=== PATIENT | female | born 1970 | race Caucasian/White ===

== ENCOUNTER 2019-12-30 14:02 | Emergency (ER) | payer OTHER, SELFPAY ==
[2019-12-30 14:03] VITALS: BP 136/89; PULSE 118; RESP 16; TEMP 36.6; O2SAT 97; BMI 23.4
--- NOTE | 2019-12-30 14:21 | CT_ITS ---
STUDY: CT PELVIS WITH CONTRAST REASON FOR EXAM: Female, 49 years old. RT GROIN/PELVIC ABSCESS, ON ANTIBIOTICS X 2 WKS W/O IMPROVEMENT RADIATION DOSAGE (If Supplied By Facility): CTDIvol = ( 23.68 ) mGy, DLP = ( 964.25 ) mGycm TECHNIQUE: Transaxial imaging of the pelvis was performed without oral contrast. IV 100mL Isovue-300 was administered intravenously. Individualized dose optimization techniques were used for this CT. COMPARISON: None. FINDINGS: Normal urinary bladder. Heterogeneous masses are seen in the uterus the largest measures 7.8 cm are consistent with fibroids. Normal visualized small intestine. Normal visualized colon. There is no pelvic fluid. There is no pelvic lymphadenopathy or mass lesion. Normal visualized pelvic arteries. Subcutaneous fat stranding at the inner aspect of the right thigh and in the labia major consistent with cellulitis. There is abnormal fluid collection to suggest an abscess. Normal osseous structures. CT/Pelvis WITH IV Contrast IMPRESSION: Subcutaneous fat stranding at the inner aspect of the right thigh and in the labia major consistent with cellulitis. There is abnormal fluid collection to suggest an abscess. Heterogeneous masses are seen in the uterus the largest measures 7.8 cm are consistent with fibroids. Electronically Signed: Galilea Meng, at 15:51 EDT Tel , Service support ,
[2019-12-30 14:52] VITALS: BP 136/89; PULSE 118; RESP 16; TEMP 36.6; O2SAT 97
[2019-12-30 14:59] LABS: Absolute Lymphocyte Count 1.37 X10^3/uL (0.83-4.51); Absolute Neutrophil Count 10.6 X10^3/uL (2.0-7.7); Basophil# 0.04 X10^3/uL; Basophil% 0.3 % (0-1); Eosinophil# 0.02 X10^3/uL; Eosinophils% 0.2 % (0-5); Hematocrit 41.5 % (37-47); Hemoglobin 13.9 g/dL (12.0-15.0); Lymphocyte # 1.37 X10^3/ul (4.0); Lymphocyte % 10.4 % (19-41); Mean Corp Hgb Conc 33.5 g/dL (32-36); Mean Corpuscular Hgb 31.7 pg (27.0-32.0); Mean Corpuscular Volume 94.7 fL (81-99); Mean Platelet Vol. 9.1 fl (6.2-12.0); Monocyte# 1.04 X10^3/uL; Monocyte% 7.9 % (0-10); NRBC Flagged by Analyzer 0 % (0-5); Neutrophil # 10.62 X10^3/uL (2.7-7.7); Neutrophil % 80.9 % (47-70); Platelet Count 375 K/mm3 (150-450); RBC Distribution Width CV 12.7 % (11.6-14.6); RBC Distribution Width SD 44.3 fl (35.1-43.9); Red Blood Count 4.38 M/mm3 (4.2-5.4); White Blood Count 13.1 K/mm3 (4.4-11.0)
[2019-12-30 15:14] LABS: Anion Gap 6 (5-15); BUN 12 mg/dL (7-18); BUN/Creat Ratio 17.2 RATIO (10-20); Calcium,Total 9.1 mg/dL (8.5-10.1); Chloride 105 mmol/L (98-107); EST Glomerular Filtration Rate 96 mL/min (>60); Est Glom Filt Rate - Afr Amer 116 mL/min (>60); Estimated Creatinine Clearance 85.79 ml/min; Glucose 96 mg/dL (74-106); Potassium 3.4 mmol/L (3.5-5.1); Sodium Level 137 mmol/L (136-145)
--- NOTE | 2019-12-30 15:28 | ED.DCSUM_ITS ---
- ER Visit Summary Date of Service: 12/30/19 Chief Complaint: [Redness and swelling to right groin] History of Present Illness: The patient is a 49 F [presents to the emergency department with swelling to the right groin and redness that started yesterday. Patient states that she was seen on December 16 by her tractor trailer moving van driver and started treatment for hidradenitis suppurativa of the right groin. Patient states that she had some steroids injected into the right groin and was started on doxycycline. Patient states that her symptoms resolved and everything seemed normal on her follow-up visit on December 26. Patient started with increased swelling and redness yesterday. She denies any fever, chills, or sweats. Patient has history of asthma. Patient was seen by nurse practitioner and her tractor trailer moving van driver office today and was referred to the ER for possible incision and drainage and surgical intervention.] Physical Examination: [HEENT-PERRLA, EOMI. Cranial nerves II through XII grossly intact. TMs clear. Mucous membranes moist. No adenopathy. Cardiovascular-regular rate and rhythm without murmur or ectopy Lungs-clear to auscultation, chest wall stable without crepitus or subcu emphysema Abdomen-normoactive bowel sounds, soft, nontender, no rebound or rigidity, no peritoneal signs. -evaluation of the right groin does reveal some scar tissue. She has some fullness noted within the groin and onto the pubic mons. There is some subtle erythema noted. There is some drainage noted from the groin. No fluctuance noted. Extremities-intact ?4, normal range of motion, normal pulses, atraumatic] Test Results: [CBC with differential obtained showed a white count 13.1, hemoglobin 14, hematocrit 42, platelets 375. Chemistries unremarkable. CT scan of the pelvis read by radiologist as cellulitis of the right groin with no evidence of discrete abscess.] Emergency Department Course and Treatment: [The line established on arrival. Patient was given clindamycin 900 mg IV. I will attempt to contact to arrange follow-up. ] Treatment Plan: [Patient will be referred to Dr. Dixon for follow-up. Patient advised to return if increasing pain, redness, swelling, fever, or condition should worsen anyway. Patient will be started on clindamycin.] Disposition: [Discharged home in stable condition] Impression: [Cellulitis right groin] This note was generated with [employer] dictation software. It may contain incorrect words, spelling, and punctuation that were not noted in review of the chart prior to signing ED Disposition - Plan for ED Patient: Referrals: Care Physician,No Primary [Primary Care Provider] -
[2019-12-30 15:32] LABS: Lactic Acid 1.3 mmol/L (0.4-1.9)
--- NOTE | 2019-12-30 16:16 | ED.DEP ---
ED Disposition - Plan for ED Patient: Instructions: ED Cellulitis Prescriptions: Clindamycin HCl [Cleocin] 300 mg PO Q6H #40 cap Prescription Printed Referrals: Care Physician,No Primary [Primary Care Provider] - Luis Dixon MD [STAFF PHYSICIAN] - 3-5 Days
[2019-12-30 18:11] VITALS: BP 114/62; PULSE 81; RESP 16; O2SAT 100
--- NOTE | 2019-12-30 18:11 | ED.RN ---
THIS NURSE REVIEWED D/C INSTRUCTIONS WITH PT. PT VERBALIZED UNDERSTANDING OF INSTRUCTIONS. IV D/C. IV CATHETER INTACT. PT TOLERATED WELL. PT DENIES FURTHER NEEDS OR QUESTIONS AT THIS TIME. PT AMBULATES FROM ROOM ON OWN WITHOUT ASSISTANCE FROM STAFF
== END 2019-12-30 18:14 | disposition home or self-care (01) ==
LOC: ED 14:59
PROVIDERS: Emergency Provider Emergency Medicine
DX: L03.314 Cellulitis of groin (principal); F17.200 Nicotine dependence, unspecified, uncomplicated
CPT/HCPCS: 72193; 80048; 83605; 85025; 96365; 96366; 99283; J7050; Q9967; A4216